=== PATIENT | male | born 1980 | race Caucasian/White ===

== ENCOUNTER 2023-06-12 01:54 | Emergency (ER) | payer OTHER ==
[2023-06-12 02:37] VITALS: BP 137/88; PULSE 78; RESP 20; TEMP 98.6; BMI 25.2
[2023-06-12] MEDS ORDERED: ACETAMINOPHEN 500 MG TABLET (FP) PO ONE (04:04)
[2023-06-12] MEDS ORDERED: ACETAMINOPHEN 325 MG TABLET (FP) ONE (04:22)
[2023-06-12] MEDS ORDERED: KETOROLAC TROMETHAMINE 30 MG/1 ML VIAL IM ONE ×2 (05:15→05:46)
[2023-06-12] MEDS ORDERED: LIDOCAINE 5% TOPICAL PATCH TP ONE (05:41)
[2023-06-12] MEDS ORDERED: CYCLOBENZAPRINE HCL 5 MG TABLET PO SCH ×2 (05:49→10:00)
[2023-06-12] MEDS ORDERED: KETOROLAC TROMETHAMINE 30 MG/1 ML VIAL ONE (05:53)
[2023-06-12] MEDS ORDERED: CYCLOBENZAPRINE HCL 5 MG TABLET ONE (05:53)
[2023-06-12] MEDS ORDERED: CYCLOBENZAPRINE HCL 5 MG TABLET PO ONE (06:02)
[2023-06-12] MEDS ORDERED: LIDOCAINE PATCH REMOVAL MC SCH (22:00)
== END 2023-06-12 06:23 | disposition home or self-care (01) ==
LOC: JER 01:54
PROC: 3E0233Z Introduction of Anti-inflammatory into Muscle, Percutaneous Approach (ICD-10-PCS; principal; 2023-06-12)
DX: M54.9 Dorsalgia, unspecified (principal); R51.9 Headache, unspecified; H92.01 Otalgia, right ear; V49.40XA Driver injured in collision with unspecified motor vehicles in traffic accident, initial encounter; Y93.I9 Activity, other involving external motion
CPT/HCPCS: 70450-TC; 72050-TC-FY; 72070-TC-FY; 72100-TC-FY; 99284-25

== ENCOUNTER 2023-07-23 20:35 | Emergency (ER) | payer OTHER ==
[2023-07-23 20:43] VITALS: TEMP 100.6; BMI 27.1
[2023-07-23] MEDS ORDERED: KETOROLAC TROMETHAMINE 15 MG/ML VIAL IM ONE (21:35)
[2023-07-23] MEDS ORDERED: ONDANSETRON 4 MG/2 ML VIAL IVPUSH ONE (21:44)
[2023-07-23] MEDS ORDERED: SODIUM CHLORIDE 1,000 ML IV STA (21:44)
[2023-07-23] MEDS ORDERED: KETOROLAC TROMETHAMINE 30 MG/1 ML VIAL IVPUSH ONE (21:45)
[2023-07-23] MEDS ORDERED: ONDANSETRON 4 MG/2 ML VIAL ONE (21:57)
[2023-07-23] MEDS ORDERED: KETOROLAC TROMETHAMINE 30 MG/1 ML VIAL ONE (21:57)
[2023-07-23 22:20] LABS: BASO % 0.5 % (0-2.0); HEMATOCRIT 43.5 % (35.4-49); HEMOGLOBIN 14.2 GM/dL (11.7-16.9); LYMPH % 9.5 % (8-40); MCH 27.9 pg (25.7-33.7); MCHC 32.7 g/dl (32.0-35.9); MEAN CELL VOLUME 85.3 fl (80-96); MEAN PLT VOLUME 8.4 fl (7.5-11.1); MONO % 12.1 % (3.8-10.2); NEUT % 77.9 % (42.8-82.8); PLATELET COUNT 182 10^3/uL (134-434); RDW 13.9 % (11.9-15.9); WHITE BLOOD COUNT 4.9 K/mm3 (4.0-10.0)
[2023-07-23 22:48] LABS: CHLORIDE 98 mmol/L (98-107)
[2023-07-23 22:50] LABS: ALBUMIN 3.3 g/dl (3.4-5.0); BLOOD UREA NITROGEN 11.3 mg/dL (7-18); CALCIUM 8.5 mg/dL (8.5-10.1); CO2 26 mmol/L (21-32)
[2023-07-23 22:52] LABS: GLUCOSE,RANDOM 105 mg/dL (74-106)
[2023-07-23 22:53] LABS: CREATININE 1.2 mg/dL (0.55-1.3)
[2023-07-23 22:54] LABS: PH,URINE 5.5 (5.0-8.0); URINE APPEARANCE CLEAR; URINE BILIRUBIN NEGATIVE (NEGATIVE); URINE COLOR YELLOW; URINE GLUCOSE (UA) NEGATIVE (NEGATIVE); URINE KETONE NEGATIVE (NEGATIVE); URINE LEUK ESTERASE NEGATIVE (NEGATIVE); URINE NITRITE NEGATIVE (NEGATIVE); URINE PROTEIN NEGATIVE (NEGATIVE); URINE UROBILINOGEN 0.2 mg/dL (0.2-1.0)
[2023-07-23 22:56] LABS: ALK PHOS 51 U/L (45-117)
[2023-07-23 23:21] LABS: ANION GAP -5 mmol/L (4-13); POTASSIUM > 10.0 mmol/L (3.5-5.1)
[2023-07-23 23:24] LABS: SODIUM 119 mmol/L (136-145)
[2023-07-24 00:03] LABS: POTASSIUM 3.3 mmol/L (3.5-5.1)
[2023-07-24 00:05] LABS: CALCIUM 7.8 mg/dL (8.5-10.1)
[2023-07-24 00:06] LABS: ALBUMIN 3.3 g/dl (3.4-5.0)
[2023-07-24 00:10] LABS: CREATININE 1.1 mg/dL (0.55-1.3)
[2023-07-24 00:11] LABS: BILIRUBIN,TOTAL 0.9 mg/dL (0.2-1)
[2023-07-24] MEDS ORDERED: ACETAMINOPHEN 1000 MG/100 ML BAG IVPB ONE (00:27)
[2023-07-24] MEDS ORDERED: ACETAMINOPHEN INJECTION 100 ML IVPB ONE (00:28)
[2023-07-24 00:32] LABS: TOT PROT 6.6 g/dl (6.4-8.2)
[2023-07-24 01:01] VITALS: BP 110/60; PULSE 76; RESP 14
== END 2023-07-24 01:30 | disposition home or self-care (01) ==
LOC: JER 20:35
PROC: 3E033NZ Introduction of Analgesics, Hypnotics, Sedatives into Peripheral Vein, Percutaneous Approach (ICD-10-PCS; principal; 2023-07-24)
PROC: 3E0333Z Introduction of Anti-inflammatory into Peripheral Vein, Percutaneous Approach (ICD-10-PCS; 2023-07-24)
PROC: 3E033GC Introduction of Other Therapeutic Substance into Peripheral Vein, Percutaneous Approach (ICD-10-PCS; 2023-07-24)
PROC: 3E0337Z Introduction of Electrolytic and Water Balance Substance into Peripheral Vein, Percutaneous Approach (ICD-10-PCS; 2023-07-24)
DX: M54.9 Dorsalgia, unspecified (principal); R11.0 Nausea; R53.83 Other fatigue; M79.10 Myalgia, unspecified site; R51.9 Headache, unspecified; R50.9 Fever, unspecified; R63.0 Anorexia; Z20.822 Contact with and (suspected) exposure to COVID-19
CPT/HCPCS: 0241U-QW; 36415; 80053; 81003; 83690; 85025; 87086; 99284-25